=== PATIENT | female | born 1980 | race Caucasian/White ===

== ENCOUNTER 2024-02-07 08:53 | Outpatient (CLI) | payer BC, SELFPAY | END 2024-02-07 08:54 | disposition home or self-care (01) | LOC: NFLDREF 02-08 10:24 | PROVIDERS: PCP Emergency Medicine; Referring Provider Emergency Medicine; Visit Provider Emergency Medicine | DX: Z13.220 Encounter for screening for lipoid disorders (principal); Z13.228 Encounter for screening for other metabolic disorders | CPT/HCPCS: 80048; 80061 ==